=== PATIENT | male | born 1995 | race Caucasian/White ===

== ENCOUNTER 2017-11-02 21:56 | Emergency (ER) | payer SELFPAY ==
[2017-11-02] MEDS ORDERED: IBUPROFEN 400 MG TAB ONE (22:20)
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
--- NOTE | 2017-11-03 07:44 | RAD REPORT ---
EXAM DESCRIPTION: US - EXTREMITY VENOUS UNI LTD - 11/02/2017 10:42 pm CLINICAL HISTORY: Pain;Swelling<Reason For Exam>Pain;Swelling COMPARISON: Extremity Venous Uni Ltd dated 11/02/2016 TECHNIQUE: Real-time sonographic evaluation of the right upper extremity deep venous systems was per formed. FINDINGS: Normal compressibility, flow augmentation, phasic flow and spontaneous flow are identified in the right upper extremity axillary, brachial radial and ulnar veins. Superficial basilic and ceph alic veins also clear. No intraluminal filling defects seen. Internal jugular and subclavian veins ar e normal as well. IMPRESSION: No DVT in the right upper extremity.
== END 2017-11-02 23:21 | disposition home or self-care (01) ==
LOC: ER 21:56
DX: M79.631 Pain in right forearm (principal); F17.210 Nicotine dependence, cigarettes, uncomplicated
CPT/HCPCS: 93971; 99284

== ENCOUNTER 2021-08-23 11:38 | Emergency (ER) | payer SELFPAY ==
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
[2021-08-23] MEDS ORDERED: KETOROLAC 30 MG/ML INJ ONE (13:49)
[2021-08-23 14:13] VITALS: BP 111/71; TEMP 98.3; O2SAT 100
== END 2021-08-23 13:57 | disposition home or self-care (01) ==
LOC: ER 11:38
DX: J03.91 Acute recurrent tonsillitis, unspecified (principal); Z20.822 Contact with and (suspected) exposure to COVID-19
CPT/HCPCS: 87070; 87081; 87804; U0003

== ENCOUNTER → 2023-04-07 | Emergency (ER) | payer SELFPAY ==
--- NOTE | 2023-04-08 00:35 | EDPHYS ---
Physician Documentation [facility] Name: Sea Bautista Age: 28 yrs Sex: Male : 1995 Arrival Date: 04/07/2023 Time: 22:58 Bed 12 Private MD: ED Physician Remy Pathak HPI: 04/07 23:17 This 28 yrs old Male presents to ER via Wheelchair with complaints of Ankle Injury. rn 23:17 The patient presents with an injury, pain, swelling. The complaints affect the left rn ankle. Onset: The symptoms/episode began/occurred today. Associated signs and symptoms: Pertinent positives: swelling, Pertinent negatives: fever, weakness. Severity of symptoms: At their worst the symptoms were moderate, in the emergency department the symptoms are unchanged. The patient has not experienced similar symptoms in the past. Patient reports rolled left ankle while stepping on first base and playing softball. Was able to ambulate and refused ambulance transport at that time. Was able to go shopping. Pain did not kick in until tonight and now hurts with swelling and hurts to ambulate.. Historical: - Allergies: 23:11 No Known Allergies; tl4 - Home Meds: 23:11 None [Active]; tl4 - PMHx: 23:11 Deep Laceration to right arm with Artery Involvement; tl4 - Immunization history:: Adult Immunizations unknown. - Social history:: Smoking status: Reported history of juuling and/or vaping. - Family history:: not pertinent. - Hospitalizations: : No recent hospitalization is reported. ROS: 23:17 Constitutional: Negative for fever, chills, and weight loss, MS/Extremity: Positive for rn left ankle injury and pain Exam: 23:17 Constitutional: This is a well developed, well nourished patient who is awake, alert, rn and in no acute distress. MS/ Extremity: Pulses equal, no cyanosis. Neurovascular intact. Tender lateral malleolus without discoloration. Mild swelling around lateral malleolus. No open wounds. No tenderness along Achilles tendon. Vital Signs: 23:10 BP 125 / 67; Pulse 85; Resp 16; Temp 98.4(O); Pulse Ox 100% on R/A; Weight 90.72 kg; tl4 Height 6 ft. 2 in. ; Pain 8/10; 23:10 Body Mass Index 25.68 (90.72 kg, 187.96 cm) tl4 23:10 Pain Scale: Adult tl4 MDM: 23:05 Patient medically screened. rn 04/08 00:34 Differential diagnosis: fracture, sprain. Data reviewed: vital signs, nurses notes, rn radiologic studies, plain films, and as a result, I will discharge patient. Counseling: I had a detailed discussion with the patient and/or guardian regarding the historical points, exam findings, and any diagnostic results supporting the discharge/admit diagnosis, radiology results, the need for outpatient follow up, to return to the emergency department if symptoms worsen or persist or if there are any questions or concerns that arise at home. Special discussion: I discussed with the patient/guardian in detail that at this point there is no indication for admission to the hospital. It is understood, however, that if the symptoms persist or worsen the patient needs to return immediately for re-evaluation. Further emergent ED testing is not indicated at this point in time. I discussed with the patient/guardian in detail the need to arrange with the PCP or specialist further outpatient testing, MRI, Based on the history and exam findings, there is no indication for further emergent testing or inpatient evaluation. I discussed with the patient/guardian the need to see the orthopedic surgeon for further evaluation of the symptoms. 04/07 23:15 Order name: XRAY Ankle LEFT 3 view rn 04/08 00:38 Order name: Walking boot; Complete Time: 00:47 rn Administered Medications: No medications were administered Disposition Summary: 04/08/23 00:34 Discharge Ordered Notes: Location: Home rn Problem: new rn Symptoms: have improved rn Condition: Stable rn Diagnosis - Sprain of unspecified ligament of left ankle, initial encounter rn Followup: rn - With: Private Physician - When: As needed - Reason: Recheck today's complaints, Re-evaluation by your physician Discharge Instructions: - Discharge Summary Sheet rn - Ankle Sprain rn Forms: - Medication Reconciliation Form rn - Thank You Letter rn - Antibiotic newspaper photojournalist - Prescription Opioid Use rn - Patient Portal Instructions rn - Leadership Thank You Letter rn Signatures: Dispatcher [employer] Remy Gill MD MD rn Logda, Joseph 4
--- NOTE | 2023-04-08 00:35 | ER ---
Nurse's Notes [facility] Name: Sea Bautista Age: 28 yrs Sex: Male : 1995 Arrival Date: 04/07/2023 Time: 22:58 Bed 12 Private MD: Diagnosis: Sprain of unspecified ligament of left ankle, initial encounter Presentation: 04/07 23:10 Chief complaint: Patient states: Pt states he overturned his left ankle while playing tl4 softball today at 1530. Pt states he heard several "pops". Pain has gotten worse. Coronavirus screen: At this time, the client does not indicate any symptoms associated with coronavirus-19. Ebola Screen: No symptoms or risks identified at this time. Initial Sepsis Screen: Does the patient meet any 2 criteria? No. Patient's initial sepsis screen is negative. Does the patient have a suspected source of infection? No. Patient's initial sepsis screen is negative. Risk Assessment: Do you want to hurt yourself or someone else? Patient reports no desire to harm self or others. Onset of symptoms was April 07, 2023 at 15:30. 23:10 Method Of Arrival: Wheelchair tl4 23:10 Acuity: KEANU 4 tl4 Triage Assessment: 23:12 General: Appears uncomfortable, Behavior is calm, cooperative. Pain: Complains of pain tl4 in left ankle Pain currently is 8 out of 10 on a pain scale. Quality of pain is described as aching. EENT: No deficits noted. No signs and/or symptoms were reported regarding the EENT system. Neuro: No deficits noted. Cardiovascular: No deficits noted. Respiratory: No deficits noted. GI: No deficits noted. No signs and/or symptoms were reported involving the gastrointestinal system. : No deficits noted. No signs and/or symptoms were reported regarding the genitourinary system. Derm: No deficits noted. No signs and/or symptoms reported regarding the dermatologic system. Musculoskeletal: Reports pain in left ankle. Historical: - Allergies: 23:11 No Known Allergies; tl4 - Home Meds: 23:11 None [Active]; tl4 - PMHx: 23:11 Deep Laceration to right arm with Artery Involvement; tl4 - Immunization history:: Adult Immunizations unknown. - Social history:: Smoking status: Reported history of juuling and/or vaping. - Family history:: not pertinent. - Hospitalizations: : No recent hospitalization is reported. Screenin:13 [facility] ED Fall Risk Assessment (Adult) History of falling in the last 3 months, tl4 including since admission No falls in past 3 months (0 pts) Confusion or Disorientation No (0 pts) Intoxicated or Sedated No (0 pts) Impaired Gait Yes (1 pt) Mobility Assist Device Used No (0 pt) Altered Elimination No (0 pt) Score/Fall Risk Level 0 - 2 = Low Risk Oriented to surroundings, Maintained a safe environment, Educated pt \\T\\ family on fall prevention, incl call for assistance when getting out of bed, Assessed \\T\\ reinforced patient's understanding of fall precautions, Provided non-skid footwear, Hourly rounding (assess needs \\T\\ fall precautionary measures) done, Used ambulatory aids as needed (educated on \\T\\ assisted with), Used gait belt as appropriate. Abuse screen: Denies threats or abuse. Denies injuries from another. Nutritional screening: No deficits noted. Tuberculosis screening: No symptoms or risk factors identified. Assessment: 23:14 Reassessment: No changes from previously documented assessment. Patient and/or family tl4 updated on plan of care and expected duration. Pain level reassessed. Patient is alert, oriented x 3, equal unlabored respirations, skin warm/dry/pink. 04/08 00:46 Reassessment: Patient appears in no apparent distress at this time. Patient and/or jb4 family updated on plan of care and expected duration. Pain level reassessed. Patient is alert, oriented x 3, equal unlabored respirations, skin warm/dry/pink. Vital Signs: 04/07 23:10 BP 125 / 67; Pulse 85; Resp 16; Temp 98.4(O); Pulse Ox 100% on R/A; Weight 90.72 kg; tl4 Height 6 ft. 2 in. ; Pain 8/10; 23:10 Body Mass Index 25.68 (90.72 kg, 187.96 cm) tl4 23:10 Pain Scale: Adult tl4 ED Course: 23:04 Patient arrived in ED. gm2 23:05 Remy Pathak MD is Attending Physician. rn 23:09 Joseph Muro is Primary Nurse. tl4 23:11 Triage completed. tl4 23:13 Arm band placed on Patient placed in an exam room, on a stretcher. tl4 23:14 Patient has correct armband on for positive identification. Bed in low position. Call tl4 light in reach. Side rails up X 1. Provided Education on: ed process. Client placed on continuous cardiac and pulse oximetry monitoring. NIBP monitoring applied. Door closed. Moved to private room. Warm blanket given. 23:14 No provider procedures requiring assistance completed. Patient did not have IV access tl4 during this emergency room visit. 04/08 00:00 XRAY Ankle LEFT 3 view In Process Unspecified. EDMS Administered Medications: No medications were administered Medication: 04/07 23:13 VIS not applicable for this client. tl4 Outcome: 04/08 00:34 Discharge ordered by . rn 00:46 Discharged to home ambulatory, jb4 00:46 Condition: stable 00:46 Discharge instructions given to patient, Instructed on discharge instructions, follow up and referral plans. Demonstrated understanding of instructions, follow-up care, 00:47 Patient left the ED. jb4 Signatures: Dispatcher [employer] EDMS Remy Pathak MD MD rn Bryson, James, RN RN jb4 Lana Ball 2 LogJoseph ruano tl4
[2023-04-08 03:38] VITALS: BP 125/67; TEMP 98.4; O2SAT 100
--- NOTE | 2023-04-09 11:56 | RAD REPORT ---
EXAM DESCRIPTION: RAD - Ankle Left 3 View - 04/07/2023 11:58 pm CLINICAL HISTORY: Lateral ankle pain COMPARISON: None. TECHNIQUE: Left Ankle 3 Views FINDINGS: No fracture or dislocation. No significant sclerotic/lytic bone lesion. Small calcaneal enthesophyte (bone spur) arising from Achilles tendon attachment site. Joint spaces unremarkable. Soft tissues unremarkable. IMPRESSION: Unremarkable Left Ankle Radiographs. Electronically signed by: Zoran Corral MD 04/08/2023 12:08 AM ELEMENT BURNER Due to temporary technical issues with the PACS/Fluency reporting system, reports are being signed by the in house radiologist without review as a courtesy to ensure prompt reporting. The interpreting r adiologist is fully responsible for the content of the report.
== END ==
LOC: ER 22:58
DX: S93.402A Sprain of unspecified ligament of left ankle, initial encounter (principal)

== ENCOUNTER 2023-10-12 16:56 | Emergency (ER) | payer SELFPAY ==
[2023-10-12 17:38] LABS: Absolute Eosinophils 0.5 K/uL (0-0.5); Absolute Lymphocytes (CBC) 0.4 K/uL (0.7-4.9); Absolute Monocytes 1.1 K/uL (0.1-1.3); Absolute Neutrophil 7.5 K/uL (1.8-8.0); Basophils % 0.3 % (0-1.3); Eosinophils % 4.8 % (0-4.4); Hematocrit 44.6 % (39.6-49.0); Hemoglobin 14.9 g/dL (13.6-17.9); Lymphocytes % 4.6 % (15.3-44.8); MCH 27.9 pg (27.0-35.0); MCHC 33.4 g/dL (32.0-36.0); MCV 83.3 fL (80-100); MPV 8.7 fL (7.6-11.3); Monocytes % 11.6 % (3.3-12.3); Neutrophils % 78.7 % (41.7-73.7); Nucleated Red Blood Cells % 0.2 % (0-0); Platelets 200 thou/uL (152-406); RBC Red Blood Cell Count 5.35 M/uL (4.33-5.43); Red Cell Distribution Width 13.1 % (12.1-15.2)
--- NOTE | 2023-10-12 17:39 | RAD REPORT ---
EXAM DESCRIPTION: RAD - Chest Single View - 10/12/2023 5:31 pm CLINICAL HISTORY: Chest pain;SOB Chest pain. COMPARISON: <Comparisons> FINDINGS: Portable technique limits examination quality. The lungs are grossly clear. The heart is normal in size. No displaced fractures. IMPRESSION: No acute intrathoracic process suspected.
[2023-10-12 18:21] LABS: ALT/SGPT 41 U/L (16-61); AST/SGOT 26 U/L (15-37); Albumin 3.9 g/dL (3.4-5.0); Albumin/Globulin Ratio 1.3 (1.1-1.8); Alkaline Phosphatase 67 U/L (45-117); Anion Gap 9.8 mEq/L (5.0-15.0); BUN Blood Urea Nitrogen 17 mg/dL (7-18); Bicarbonate 27 mEq/L (21-32); Bilirubin Direct 0.2 mg/dL (0-0.2); Bilirubin Indirect, Calculated 0.3 mg/dL (0.2-0.8); Bilirubin Total 0.5 mg/dL (0.2-1.0); Globulin 3.1 g/dL (2.3-3.5); Glomerular Filtration Rate 101 ml/min (=/>90); Glucose Level 102 mg/dL (74-106); Lipase 26 U/L (13-75); Potassium 3.8 mEq/L (3.5-5.1); Sodium Level 139 mEq/L (136-145)
[2023-10-12 18:24] LABS: Troponin High Sensitivity < 3.0 pg/mL (<58.9)
[2023-10-12 18:56] LABS: SARS-CoV-2 Antigen CONTROL BLUE LINE VIS/BG OK; SARS-CoV-2 Antigen Rapid Res Positive (Negative)
--- NOTE | 2023-10-12 19:07 | RAD REPORT ---
EXAM DESCRIPTION: CTAbdomen Pelvis W Contrast - 10/12/2023 6:56 pm CLINICAL HISTORY: Abdominal pain. ABD PAIN COMPARISON: <Comparisons> TECHNIQUE: Biphasic CT imaging of the abdomen and pelvis was performed with 100 ml non-ionic IV cont rast. All CT scans are performed using dose optimization technique as appropriate and may include automated exposure control or mA/KV adjustment according to patient size. FINDINGS: The lung bases are clear. The liver, spleen, pancreas, adrenal glands and kidneys are within normal limits. No bowel obstruction, free air, free fluid or abscess. The appendix is normal. No evidence of signi ficant lymphadenopathy. No suspicious bony findings. IMPRESSION: No acute intra-abdominal or pelvic finding.
--- NOTE | 2023-10-12 19:48 | ER ---
Nurse's Notes [facility] Name: Sea Bautista Age: 28 yrs Sex: Male : 1995 Arrival Date: 10/12/2023 Time: 16:56 Bed 13 Private MD: Diagnosis: SARS-associated coronavirus as the cause of diseases classified elsewhere;Nausea with vomiting, unspecified;Shortness of breath;Abdominal pain, unspecified Presentation: 10/11 17:04 Chief complaint: Patient states: Congestion started last night. Chills, fever, SOB, N/V ll1 started today. Coronavirus screen: Client denies travel out of the [place] in the last 14 days. chills, congestion, cough unrelated to allergies, fatigue, headache, nausea, vomiting. Client presents with at least one sign or symptom that may indicate coronavirus-19. Standard/surgical mask placed on the client. Ebola Screen: Patient denies travel to an Ebola-affected area in the 21 days before illness onset. Initial Sepsis Screen: Does the patient meet any 2 criteria? No. Patient's initial sepsis screen is negative. Does the patient have a suspected source of infection? No. Patient's initial sepsis screen is negative. Risk Assessment: Do you want to hurt yourself or someone else? Patient reports no desire to harm self or others. Onset of symptoms was October 11, 2023. 17:04 Method Of Arrival: Ambulatory ll1 17:04 Acuity: KEANU 4 ll1 Triage Assessment: 17:07 General: Appears uncomfortable, Behavior is calm, cooperative, appropriate for age, db Reports chills for feeling ill for fatigue for. Pain: Complains of pain in head Quality of pain is described as aching. EENT: Reports nasal congestion. Neuro: Reports headache weakness. Respiratory: Reports cough that is. Respiratory: Reports. GI: Reports nausea, vomiting. 19:10 Respiratory: Onset: The symptoms/episode began/occurred today, the patient has mild al5 shortness of breath. Historical: - Allergies: 17:07 No Known Drug Allergies; ll1 - PMHx: 17:07 None; ll1 - PSHx: 17:07 arm surgery deep laceration; ll1 - Immunization history:: Adult Immunizations up to date. - Infectious Disease History:: Denies. - Social history:: Smoking status: Reported history of juuling and/or vaping. Patient denies any tobacco usage or history of. Screenin:49 [facility] ED Fall Risk Assessment (Adult) History of falling in the last 3 months, ld1 including since admission No falls in past 3 months (0 pts) Confusion or Disorientation No (0 pts) Intoxicated or Sedated No (0 pts) Impaired Gait No (0 pts) Mobility Assist Device Used No (0 pt) Altered Elimination No (0 pt) Score/Fall Risk Level 0 - 2 = Low Risk Oriented to surroundings, Maintained a safe environment, Educated pt \T\ family on fall prevention, incl call for assistance when getting out of bed, Assessed \T\ reinforced patient's understanding of fall precautions, Provided non-skid footwear, Hourly rounding (assess needs \T\ fall precautionary measures) done, Used ambulatory aids as needed (educated on \T\ assisted with), Used gait belt as appropriate. Abuse screen: Denies threats or abuse. Denies injuries from another. Nutritional screening: No deficits noted. Tuberculosis screening: No symptoms or risk factors identified. Assessment: 18:49 General: Appears in no apparent distress. comfortable, Behavior is calm, cooperative, ld1 appropriate for age. Pain: Denies pain. Neuro: Level of Consciousness is awake, alert, obeys commands, Oriented to person, place, time, situation, Appropriate for age. Cardiovascular: Capillary refill < 3 seconds Patient's skin is warm and dry. Rhythm is sinus rhythm. Respiratory: Airway is patent Respiratory effort is even, unlabored, Breath sounds are clear bilaterally. GI: Abdomen is flat, non-distended. : No signs and/or symptoms were reported regarding the genitourinary system. EENT: No signs and/or symptoms were reported regarding the EENT system. Derm: No signs and/or symptoms reported regarding the dermatologic system. Musculoskeletal: No signs and/or symptoms reported regarding the musculoskeletal system. 19:09 Reassessment: Patient appears in no apparent distress at this time. No changes from al5 previously documented assessment. Patient and/or family updated on plan of care and expected duration. Pain level reassessed. Patient is alert, oriented x 3, equal unlabored respirations, skin warm/dry/pink. Vital Signs: 17:04 BP 122 / 58; Pulse 106; Resp 17; Temp 99.1(O); Pulse Ox 97% on R/A; Weight 97.52 kg; ll1 Height 6 ft. 2 in. ; Pain 8/10; 18:49 BP 119 / 63; Pulse 98; Resp 18; Pulse Ox 98% on R/A; ld1 19:10 BP 120 / 76; Pulse 94; Resp 16; Pulse Ox 100% on R/A; al5 17:04 Body Mass Index 27.60 (97.52 kg, 187.96 cm) ll1 17:04 Pain Scale: Adult ll1 ED Course: 17:00 Patient arrived in ED. ra3 17:00 Hipolito Momin PA is PHCP. cp 17:00 Faisal Crane MD is Attending Physician. cp 17:06 Triage completed. ll1 17:07 Arm band placed on. ll1 17:34 XRAY Chest (1 view) In Process Unspecified. EDMS 17:38 Initial lab(s) drawn, by me, sent to lab. EKG done, by ED staff, reviewed by Hipolito Momin cc6 PA. Inserted saline lock: 20 gauge in left antecubital area, using aseptic technique. Blood collected. Flushed with 10 mL NS. 18:48 Azucena Max, RN is Primary Nurse. ld1 18:48 Strep Sent. ld1 18:48 Influenza Screen (a \T\ B) Sent. ld1 18:48 SARS RAPID Sent. ld1 18:49 Patient has correct armband on for positive identification. Placed in gown. Bed in low ld1 position. Call light in reach. Side rails up X2. monitoring tech on. Pulse ox on. NIBP on. Door closed. Noise minimized. Warm blanket given. 18:49 No provider procedures requiring assistance completed. ld1 18:57 CT Abd/Pelvis - IV Contrast Only In Process Unspecified. EDMS 19:04 Primary Nurse role handed off by Azucena Max, IZZY al5 19:04 Clarissa Martinez, IZZY is Primary Nurse. al5 19:10 Provided Education on: processes and procedures. al5 20:10 IV discontinued, intact, bleeding controlled, No redness/swelling at site. Pressure al5 dressing applied. Administered Medications: No medications were administered Medication: 18:49 VIS not applicable for this client. ld1 Outcome: 19:47 Discharge ordered by . cp 20:10 Discharged to home ambulatory, with significant other, al5 20:10 Condition: good 20:10 Discharge instructions given to patient, Instructed on discharge instructions, follow up and referral plans. medication usage, Demonstrated understanding of instructions, follow-up care, medications, Prescriptions given X 2, 20:10 Patient left the ED. al5 Signatures: Dispatcher [employer] EDMS Hipolito Momin PA PA cp Lewis, Lynsay RN RN ll1 Azucena Max RN RN ld1 Julissa Andino RN RN db Alva, Ruby ra3 Clarissa Martinez RN RN al5 Alena Monsalve RN RN cc6 Corrections: (The following items were deleted from the chart) 17:07 17:07 PMHx: Deep Laceration to right arm with Artery Involvement; ll1 ll1
--- NOTE | 2023-10-12 19:48 | EDPHYS ---
Physician Documentation [facility] Name: Sea Bautista Age: 28 yrs Sex: Male : 1995 Arrival Date: 10/12/2023 Time: 16:56 Bed 13 Private MD: ED Physician Faisal Crane HPI: 10/11 17:15 This 28 yrs old Male presents to ER via Ambulatory with complaints of Breathing cp Difficulty, Congestion, Vomiting - Blood. 17:15 The patient has shortness of breath at rest. Onset: The symptoms/episode began/occurred cp today. 17:15 Duration: The symptoms are continuous. cp 17:15 Associated signs and symptoms: Pertinent positives: productive cough, fever, nausea, cp vomiting with some blood. Severity of symptoms: in the emergency department the symptoms are unchanged despite home interventions. Historical: - Allergies: 17:07 No Known Drug Allergies; ll1 - PMHx: 17:07 None; ll1 - PSHx: 17:07 arm surgery deep laceration; ll1 - Immunization history:: Adult Immunizations up to date. - Infectious Disease History:: Denies. - Social history:: Smoking status: Reported history of juuling and/or vaping. Patient denies any tobacco usage or history of. ROS: 17:20 Constitutional: Positive for body aches, Negative for fever, cp 17:20 Cardiovascular: Positive for chest pain, Negative for edema, palpitations, cp 17:20 Respiratory: Positive for cough, 17:20 Eyes: Negative for injury, pain, redness, and discharge, cp 17:20 ENT: Positive for sore throat, 17:20 Abdomen/GI: Positive for abdominal pain, nausea and vomiting, anorexia, hematemesis, Negative for diarrhea, constipation, 17:20 Neuro: Negative for altered mental status, 17:20 All other systems are negative, cp Exam: 17:25 Constitutional: The patient appears in no acute distress, alert, awake, non-toxic, well cp developed, well nourished, uncomfortable, 17:25 Head/Face: Normocephalic, atraumatic. cp 17:25 Eyes: Periorbital structures: appear normal, Conjunctiva: normal, no exudate, no injection, Sclera: no appreciated abnormality, Lids and lashes: appear normal, bilaterally, 17:25 ENT: External ear(s): are unremarkable, Ear canal(s): are normal, clear, TM's: dullness, bilaterally, Nose: is normal, Mouth: Lips: moist, Oral mucosa: moist, Posterior pharynx: Airway: no evidence of obstruction, patent, Tonsils: with erythema, erythema, that is mild, exudate, is not appreciated, 17:25 Neck: ROM/movement: is normal, is supple, no meningismus, no nuchal rigidity, 17:25 Chest/axilla: Inspection: normal, 17:25 Cardiovascular: Rate: tachycardic, Rhythm: regular, 17:25 Respiratory: the patient does not display signs of respiratory distress, Respirations: normal, no use of accessory muscles, no retractions, labored breathing, is not present, Breath sounds: are clear throughout, no decreased breath sounds, no stridor, no wheezing, 17:25 Abdomen/GI: Inspection: abdomen appears normal, Bowel sounds: active, all quadrants, Palpation: soft, in all quadrants, moderate abdominal tenderness, in the epigastric area, right upper quadrant and left upper quadrant, rebound tenderness, is not appreciated, involuntary guarding, is not appreciated, 17:25 Back: CVA tenderness, is absent, 17:25 Neuro: Orientation: to person, place \T\ time. Mentation: is normal, Motor: moves all fours, strength is normal, 17:42 ECG was reviewed by the Attending Physician. Vital Signs: 17:04 BP 122 / 58; Pulse 106; Resp 17; Temp 99.1(O); Pulse Ox 97% on R/A; Weight 97.52 kg; ll1 Height 6 ft. 2 in. ; Pain 8/10; 18:49 BP 119 / 63; Pulse 98; Resp 18; Pulse Ox 98% on R/A; ld1 19:10 BP 120 / 76; Pulse 94; Resp 16; Pulse Ox 100% on R/A; al5 17:04 Body Mass Index 27.60 (97.52 kg, 187.96 cm) ll1 17:04 Pain Scale: Adult ll1 MDM: 17:08 Patient medically screened. cp 18:00 Differential diagnosis: pneumonia, Sepsis COVID-19, influenza, strep throat, gastritis. cp 19:45 Data reviewed: vital signs, nurses notes, lab test result(s), EKG, radiologic studies, cp CT scan, plain films, and as a result, I will discharge patient. 19:47 Counseling: I had a detailed discussion with the patient and/or guardian regarding the cp historical points, exam findings, and any diagnostic results supporting the discharge/admit diagnosis, lab results, radiology results, to return to the emergency department if symptoms worsen or persist or if there are any questions or concerns that arise at home. 19:47 Response to treatment: the patient's symptoms have markedly improved after treatment, and as a result, I will discharge patient. 10/11 17:12 Order name: Basic Metabolic Panel; Complete Time: 18:28 10/11 17:12 Order name: CBC with Diff; Complete Time: 18:28 10/11 19:14 Interpretation: Normal except: COLTEN% 78.7; LYM% 4.6; EOSINOPHIL % 4.8; LYMA 0.4. 10/11 17:12 Order name: D-Dimer; Complete Time: 18:28 10/11 17:12 Order name: LFT's; Complete Time: 18:28 10/11 17:12 Order name: Magnesium; Complete Time: 18:28 10/11 17:12 Order name: Troponin HS; Complete Time: 18:28 10/11 17:12 Order name: Lipase; Complete Time: 18:28 10/11 18:28 Order name: SARS RAPID; Complete Time: 19:13 10/11 18:28 Order name: Influenza Screen (a \T\ B); Complete Time: 19:13 10/11 18:28 Order name: Strep 10/11 18:59 Order name: Throat Culture [facility] 10/11 17:12 Order name: XRAY Chest (1 view); Complete Time: 18:28 10/11 18:28 Interpretation: Report review. 10/11 18:29 Order name: CT Abd/Pelvis - IV Contrast Only; Complete Time: 19:13 10/11 19:14 Interpretation: Report reviewed. 10/11 17:12 Order name: Cardiac monitoring; Complete Time: 19:09 10/11 17:12 Order name: EKG - Nurse/Tech; Complete Time: 17:51 10/11 17:12 Order name: IV Saline Lock; Complete Time: 17:51 08/09 17:12 Order name: Labs collected and sent; Complete Time: 17:51 cp 10/11 17:12 Order name: O2 Per Protocol; Complete Time: 17:51 cp 10/11 17:12 Order name: O2 Sat Monitoring; Complete Time: 17:51 cp 10/11 19:14 Order name: PO challenge; Complete Time: 19:49 cp EC:42 Rate is 93 beats/min. Rhythm is regular. GA interval is normal. QRS interval is normal. cp QT interval is normal. T waves are Inverted in lead aVR. Interpreted by me. Reviewed by me. Administered Medications: No medications were administered Disposition Summary: 10/12/23 19:47 Discharge Ordered Notes: Location: Home cp Problem: new cp Symptoms: have improved cp Condition: Stable cp Diagnosis - SARS-associated coronavirus as the cause of diseases classified elsewhere cp - Nausea with vomiting, unspecified cp - Shortness of breath cp - Abdominal pain, unspecified cp Followup: cp - With: Private Physician - When: 2 - 3 days - Reason: Worsening of condition Discharge Instructions: - Discharge Summary Sheet cp - Abdominal Pain, Adult cp - Nausea and Vomiting, Adult cp - COVID-19 cp - How to Protect Yourself and Others - [facility] (04/29/2021) cp - 10 Things You Can Do to Manage Your COVID-19 Symptoms at Home - [facility] (09/17/2020) cp - COVID-19: Quarantine and Isolation - [facility] (06/01/2021) cp - COVID-19: What to Do If You Are Sick - [facility] (05/24/2021) cp Forms: - Medication Reconciliation Form cp - Antibiotic Education cp - Prescription Opioid Use cp - Patient Portal Instructions cp - Leadership Thank You Letter cp Prescriptions: - Paxlovid 300 mg (150 mg x 2)-100 mg Oral Tablet, Dose Pack - take 1 dose pack ORAL route as directed on dose pack take TWO 150 mg tablets of cp nirmatrelvir with ONE 100 mg tablet of ritonavir twice daily for 5 days; 30 tablet; Refills: 0, Product Selection Permitted - Zofran 4 mg Oral Tablet - take 1 tablet ORAL route every 12 hours As needed; 20 tablet; Refills: 0, cp Product Selection Permitted Addendum: 10/15/2023 09:55 Co-signature as Attending Physician, Faisal Crane MD I reviewed the patient's care r t provided by the Advanced Practice Provider and agree with the diagnosis and treatment plan. Signatures: Dispatcher [employer] EDMS Hipolito Momin PA PA cp Lewis, Lynsay, RN RN ll1 Azucena Max RN RN ld1 Faisal Crane MD MD rt Corrections: (The following items were deleted from the chart) 10/11 17:07 17:07 PMHx: Deep Laceration to right arm with Artery Involvement; ll1 ll1 17:13 17:13 BASIC METABOLIC PANEL+C.LAB.BRZ ordered. EDMS EDMS 17:13 17:13 CBC+H.LAB.BRZ ordered. EDMS EDMS 17:13 17:13 D-DIMER+COAG.LAB.BRZ ordered. EDMS EDMS 17:13 17:13 HEPATIC FUNCTION+C.LAB.BRZ ordered. EDMS EDMS 17:13 17:13 MAGNESIUM+C.LAB.BRZ ordered. EDMS EDMS 17:13 17:13 Troponin High Sensitivity+C.LAB.BRZ ordered. EDMS EDMS 17:13 17:13 LIPASE+C.LAB.BRZ ordered. EDMS EDMS 17:13 17:13 Chest Single View+RAD.RAD.BRZ ordered. EDMS EDMS
[2023-10-12 20:23] VITALS: TEMP 99.1
[2023-10-12 20:34] VITALS: BP 120/76; O2SAT 100
--- NOTE | 2023-10-15 13:53 | EKG ---
Test Date: 2023-10-12 Test Time: 17:35:53 Insole Beveler: TIFF MEASUREMENT RESULTS: Intervals: Rate: 93 [place]: 154 QRSD: 74 QT: 318 QTc: 395 Brilliant: P: 54 [place]: 154 QRS: 30 T: 20 INTERPRETIVE STATEMENTS: Normal sinus rhythm Normal ECG Compared to ECG 09/21/2022 04:31:22 No significant changes Electronically Signed On 10-15-23 13:47:02 CDT by Azar Hernadez
== END 2023-10-12 20:10 | disposition home or self-care (01) ==
LOC: ER 16:56
DX: U07.1 COVID-19 (principal); R11.2 Nausea with vomiting, unspecified; R10.13 Epigastric pain
CPT/HCPCS: 36415; 71045; 74177; 80048; 80076; 83690; 83735; 84484; 85025; 85379; 87070; 87081; 87804; 87811; 93005; 99284; Q9967